=== PATIENT | male | born 1945 | race Caucasian/White ===

== ENCOUNTER 2022-06-05 09:36 | Emergency (ER) | payer MEDICARE, OTHER ==
[~2022-06-05] VITALS: Ht 175.3 cm; Wt 113.4 kg
[~2022-06-05 09:36] MED LIST: BACTRIM DS TAB1 EACH PO; CEPHALEXIN500 MG PO; NOVOLOG 3M100 UNITS/ SQ; Z.0.LEVEMIR 3M100 UN SQ; Z.0.LEVOTHYROXINE50 PO; Z.0.RAMIPRIL10 MG PO; Z.0.SIMVASTATIN40 MG PO; Z.1.METFORMIN HCL100 PO
== END 2022-06-05 14:50 | disposition home or self-care (01) ==
LOC: ER 09:53
DX: S00.83XA Contusion of other part of head, initial encounter (principal); W18.39XA Other fall on same level, initial encounter; Y93.01 Activity, walking, marching and hiking; Y92.89 Other specified places as the place of occurrence of the external cause; E11.9 Type 2 diabetes mellitus without complications; F32.A Depression, unspecified; E66.9 Obesity, unspecified
CPT/HCPCS: 70450; 72125; 99283